=== PATIENT | female | born 1990 | race Caucasian/White ===

== ENCOUNTER 2016-12-02 19:10 | Emergency (ER) | payer BC ==
[2016-12-02 19:14] VITALS: BP 120/75
--- NOTE | 2016-12-02 20:33 | UC ---
Michael Story Alok, scribed for Jean Vences MD on 12/02/16 at 2027 . Abdominal Pain Female HPI - HPI Summary HPI Summary: 26F presents to the [facility] for epigastic pain on and off accompanied by hematemesis with black stools since 2 days ago. Pt states that 5 days ago she has been taking ibuprofen for a migraine frequently. Pt tried taking heart burn medication 2 days ago with no alleviation. Pt states her abd pain worsens with ETOH, though notes ETOH intolerance for the past 2 months. At worst her abd pain was at a 8/10 yesterday. Pt notes N/V and loss of appetite as well as slight BRAY at present. Pt notes lightheadedness and dizziness. Pt denies vaginal discharge. Pt no longer gets MP due to IUD. - History of Current Complaint Chief Complaint: UCAbdominalPain Stated Complaint: STOMACH PAIN Time Seen by Provider: 12/02/16 20:15 Hx Obtained From: Patient Hx Last Menstrual Period: iud Onset/Duration: Lasting Days, Still Present Timing: Constant Severity Initially: Moderate Severity Currently: Moderate Pain Intensity: 8 Pain Scale Used: 0-10 Numeric Location: Epigastric Aggravating Factor(s): Food, Other: - ETOH Alleviating Factor(s): Nothing Associated Signs and Symptoms: Positive: Blood in Stool, Decreased Appetite, Nausea, Vomiting, Other: - hematemesis. Negative: Fever, Vaginal Discharge Allergies/Adverse Reactions: Allergies Allergy/AdvReac Type Severity Reaction Status Date / Time Amoxicillin Allergy Severe Anaphylatic Verified 12/15/15 10:04 Shock Penicillins Allergy Severe Anaphylatic Verified 12/15/15 10:04 Shock PMH/Surg Hx/FS Hx/Imm Hx Neurological History: Migraine - Surgical History Surgical History: Yes Surgery Procedure, Year, and Place: HERNIA REPAIR AT AGE 4 - Family History Known Family History: Negative: Cardiac Disease, Hypertension, Diabetes - Social History Lives: With Family Alcohol Use: None Substance Use Type: None Smoking Status (MU): Never Smoked Tobacco Have You Smoked in the Last Year: No Review of Systems Constitutional: Negative Gastrointestinal: Abdominal Pain, Vomiting, Nausea, Other - black stool, hematemesis Neurological: Headache, Other - lightheadedness, dizziness All Other Systems Reviewed And Are Negative: Yes Physical Exam Triage Information Reviewed: Yes Appearance: Well-Appearing, No Pain Distress Vital Signs: Initial Vital Signs Temp 97.8 F 12/02/16 19:11 Pulse 96 12/02/16 19:11 Resp 16 12/02/16 19:11 BP 120/75 12/02/16 19:11 Pulse Ox 100 12/02/16 19:11 Vital Signs Reviewed: Yes Eyes: Positive: Other: - EOMI, BETTY ENT: Positive: Normal ENT inspection Neck: Positive: Supple, Nontender Respiratory: Positive: Lungs clear, Normal breath sounds Cardiovascular: Positive: RRR Abdomen Description: Positive: Soft, Other: - Epigastric tenderness. Left lower quadrant tenderness to palpation patient was unaware of before exam. Bowel Sounds: Positive: Present Musculoskeletal Exam: Normal Musculoskeletal: Positive: Strength Intact, ROM Intact Neurological Exam: Normal Neurological: Positive: Alert, Other: - Sensory/Motor intact Psychological: Positive: Other: - affect/mood appropriate Skin: Positive: Other - warm, dry, skin color reflects adequate perfusion Abd Pain Female Course/Dx - Course Course Of Treatment: Patient medications reviewed this visit. DISCUSSED REASONS TO GO TO THE EMERGENCY DEPARTMENT. AT THIS TIME WILL TREAT WITH OMEPRAZOLE AND CARAFATE AND OTC MEDS (TUMS/MAALOX). STOP NSAIDS. F/U WITH PMD ; GO TO THE ED IF WORSE. - Differential Dx/Diagnosis Provider Diagnoses: EPIGASTRIC PAIN. Discharge - Discharge Plan Condition: Stable Disposition: HOME Prescriptions: Omeprazole CAP* [Prilosec CAP* 20 MG] 20 mg PO BID #30 cap. Ondansetron ODT TAB* [Zofran 4 MG Odt TAB*] 4 mg PO Q6H PRN #15 tab.odt PRN Reason: Nausea Sucralfate TAB* [Carafate*] 1 gm PO QID #60 tab Patient Education Materials: Epigastric Pain (ED) Referrals: No Primary Care Phys,NOPCP [Primary Care Provider] - Additional Instructions: FOLLOW UP WITH YOUR DOCTOR. CALL TOMORROW FOR FOLLOW UP WITH YOUR DOCTOR. GO TO THE EMERGENCY DEPARTMENT FOR ANY WORSENING OF YOUR CONDITION; PAIN, FEVER , BLOOD IN YOUR VOMIT OR STOOL, YOU FEEL LIGHTHEADED, YOU FEEL ILL OR QUESTIONS OR CONCERNS. The documentation as recorded by the Michael waldrop Alok accurately reflects the service I personally performed and the decisions made by me, Jean Vences MD.
== END 2016-12-02 20:46 | disposition home or self-care (01) ==
LOC: UCEAST 19:10
DX: R10.13 Epigastric pain (principal); G43.909 Migraine, unspecified, not intractable, without status migrainosus; Z97.5 Presence of (intrauterine) contraceptive device; Z88.3 Allergy status to other anti-infective agents; Z88.0 Allergy status to penicillin
CPT/HCPCS: 99212; G0463

== ENCOUNTER 2017-05-10 15:59 | Emergency (ER) | payer BC ==
[2017-05-10 16:31] VITALS: BP 121/67
--- NOTE | 2017-05-10 17:06 | UC ---
Ear Complaint HPI - HPI Summary HPI Summary: 26 year old female presents with complains of left ear pain/bleeding. - History of Current Complaint Chief Complaint: UCRespiratory Stated Complaint: EAR PAIN Time Seen by Provider: 05/10/17 17:05 Hx Obtained From: Patient Hx Last Menstrual Period: unknown- Mirena IUD Onset/Duration: Sudden Onset Severity Initially: Moderate Severity Currently: Moderate Pain Scale Used: 0-10 Numeric - 7 - Allergies/Home Medications Allergies/Adverse Reactions: Allergies Allergy/AdvReac Type Severity Reaction Status Date / Time Amoxicillin Allergy Severe Anaphylatic Verified 05/10/17 16:31 Shock Penicillins Allergy Severe Anaphylatic Verified 05/10/17 16:31 Shock Home Medications: Home Medications Bupropion XL* [Wellbutrin XL *] 1 tab PO DAILY 05/10/17 [History Confirmed 05/10] PMH/Surg Hx/FS Hx/Imm Hx Previously Healthy: Yes - Surgical History Surgical History: Yes Surgery Procedure, Year, and Place: HERNIA REPAIR AT AGE 4 - Family History Known Family History: Positive: None Negative: Cardiac Disease, Hypertension, Diabetes - Social History Alcohol Use: Weekly Alcohol Amount: 1 glass of wine Substance Use Type: None Smoking Status (MU): Never Smoked Tobacco Have You Smoked in the Last Year: No - Immunization History Most Recent Influenza Vaccination: unknown Review of Systems Constitutional: Negative Skin: Negative Eyes: Negative ENT: Ear Ache Respiratory: Negative Cardiovascular: Negative Gastrointestinal: Negative Genitourinary: Negative Motor: Negative Neurovascular: Negative Musculoskeletal: Negative Neurological: Negative Psychological: Negative All Other Systems Reviewed And Are Negative: Yes Physical Exam Triage Information Reviewed: Yes Vital Signs: Initial Vital Signs Temp 37.1 C 05/10/17 16:27 Pulse 70 05/10/17 16:27 Resp 14 05/10/17 16:27 BP 121/67 05/10/17 16:27 Pulse Ox 100 05/10/17 16:27 Vital Signs Reviewed: Yes Eye Exam: Normal ENT: Positive: Other - left external ear canal erythema Dental Exam: Normal Neck exam: Normal Neck: Positive: 1 Respiratory Exam: Normal Cardiovascular Exam: Normal Abdominal Exam: Normal Musculoskeletal Exam: Normal Neurological Exam: Normal Psychological Exam: Normal Skin Exam: Normal Ear Complaint Course/Dx - Differential Dx/Diagnosis Provider Diagnoses: left otitis externa Discharge - Discharge Plan Condition: Stable Disposition: HOME Prescriptions: DOXYcycline CAP(*) [DOXYcycline 100MG CAP(*)] 100 mg PO BID #14 cap Neomyc/Polym/HC 1% OTIC SUSP* [Cortisporin Otic Susp 1%*] 4 drop LEFT EAR QID # 1 btl Patient Education Materials: Otitis Externa (ED) Referrals: Jv Burk MD [Medical Doctor] - No Primary Care Phys,NOPCP [Primary Care Provider] -
== END 2017-05-10 17:30 | disposition home or self-care (01) ==
LOC: UCEAST 15:59
DX: H60.92 Unspecified otitis externa, left ear (principal); Z88.0 Allergy status to penicillin; Z88.1 Allergy status to other antibiotic agents
CPT/HCPCS: 99212; G0463

== ENCOUNTER 2017-09-27 01:24 | Emergency (ER) | payer BC ==
[2017-09-27] MEDS ORDERED: Lidocaine 2% 10 ML* VIAL INJ ONE (02:30)
[2017-09-27] MEDS ORDERED: Lidocaine 2% PF * 5 ML VIAL ONE (02:33)
--- NOTE | 2017-09-27 03:17 | ED ---
Smitha Story Emily, scribed Bj Morris MD on 09/27/17 at 0233 . Laceration/Wound HPI - HPI Summary HPI Summary: This patient is a 27 year old F presenting to [facility] accompanied by friend with a chief complaint of dog bite to her upper and lower lip that occurred [employer]. Pt reports the puppy being up to date on vaccines. The patient rates the pain 8/10 in severity. Symptoms aggravated by nothing. Symptoms alleviated by nothing. - History of Current Complaint Stated Complaint: DOG BITE Time Seen by Provider: 09/27/17 02:19 Hx Obtained From: Patient Hx Last Menstrual Period: unknown- Mirena IUD Onset/Duration: Sudden Onset, Lasting Hours, Still Present Aggravating: Nothing Alleviating: Nothing Onset Severity: Severe Current Severity: Severe Pain Intensity: 8 Pain Scale Used: 0-10 Numeric Associated Signs & Symptoms: Negative - Allergy/Home Medications Allergies/Adverse Reactions: Allergies Allergy/AdvReac Type Severity Reaction Status Date / Time amoxicillin Allergy Anaphylatic Verified 09/27/17 01:40 Shock Penicillins Allergy Anaphylatic Verified 09/27/17 01:40 Shock PMH/Surg Hx/FS Hx/Imm Hx Previously Healthy: Yes Endocrine/Hematology History: Denies: Hx Diabetes, Hx Thyroid Disease Cardiovascular History: Denies: Hx Hypertension Respiratory History: Denies: Hx Asthma, Hx Chronic Obstructive Pulmonary Disease (COPD) GI History: Denies: Hx Ulcer - Surgical History Surgery Procedure, Year, and Place: HERNIA REPAIR AT AGE 4 Infectious Disease History: No Infectious Disease History: Denies: Hx Clostridium Difficile, Hx Hepatitis, Hx Human Immunodeficiency Virus (HIV), Hx of Known/Suspected MRSA, Hx Shingles, Hx Tuberculosis, Hx Known/ Suspected VRE, Hx Known/Suspected VRSA, History Other Infectious Disease, Traveled Outside the [place] in Last 30 Days - Family History Known Family History: Positive: None Negative: Cardiac Disease, Hypertension, Diabetes - Social History Occupation: Employed Full-time Lives: Alone Alcohol Use: Weekly Alcohol Amount: 1 glass of wine Substance Use Type: Reports: None Smoking Status (MU): Never Smoked Tobacco Have You Smoked in the Last Year: No Review of Systems Negative: Fever Positive: Other - Positive laceration to upper and lower lips All Other Systems Reviewed And Are Negative: Yes Physical Exam - Summary Physical Exam Summary: Appearance: Well-appearing, Well-nourished, lying in bed comfortably Skin: Warm, dry, no obvious rash Eyes: sclera anicteric, no conjunctiva pallor ENT: mucous membranes moist, pharynx appears normal Head and Face: Lower lip, very superficial puncture wound. Upper lip has a flap laceration about 1 cm in length with minimal maceration at the edges. No through and through laceration of the lip. The wound goes up to but not over the ravi border. Neck: Supple, nontender Respiratory: Clear to auscultation, no signs of respiratory distress Cardiovascular: Normal S1, S2. No murmurs. Normal distal pulses in tibial and radial bilaterally. Abdomen: Soft, nontender, normal active bowel sounds present Musculoskeletal: Normal, Strength/ROM Intact Neurological: A&Ox3, awake and alert, mentation is normal, speech is fluent and appropriate Psychiatric: affect is normal, does not appear anxious or depressed Triage Information Reviewed: Yes Vital Signs On Initial Exam: Initial Vitals Temp Pulse Resp BP Pulse Ox 98.2 F 92 18 126/68 100 09/27/17 01:36 09/27/17 01:36 09/27/17 01:36 09/27/17 01:36 09/27/17 01:36 Vital Signs Reviewed: Yes Procedures - Laceration/Wound Repair 1 Location: Other - upper lip Description: Irregular Anesthesia: 2.0% - bilateral infraorbital blocks Length, Depth and Shape: 1.5 cm curvilinear flap laceration Betadine Prep?: Yes Laceration/Wound Explored: clean Closure: Single Layer Suture Type: Other - fast absorbing gut Number of Sutures: 5 Layer Closure?: No Sterile Dressing Applied?: No Diagnostics - Vital Signs Vital Signs Temp Pulse Resp BP Pulse Ox 09/27/17 01:36 98.2 F 92 18 126/68 100 - Laboratory Lab Statement: Any lab studies that have been ordered have been reviewed, and results considered in the medical decision making process. Laceration Repair Course/Dx - Differential Dx Differental Diagnoses: Bite Injury - Clinical Impression Provider Diagnoses: Laceration of lip Discharge - Sign-Out/Discharge Documenting (check all that apply): Discharge/Admit/Transfer - Discharge Plan Condition: Good Disposition: HOME Patient Education Materials: Care For Your Stitches (ED) Referrals: Loli Lazar MD [Primary Care Provider] - Additional Instructions: Clean the area twice daily gently. The sutures should dissolve and fall out within a week, but if they have not come back and we will remove them. Watch for signs of infection and come back if it is starting to look infected. - Billing Disposition and Condition Condition: GOOD Disposition: HOME The documentation as recorded by the Smitha waldrop Emily accurately reflects the service I personally performed and the decisions made by me, Bj Sheridan MD.
[2017-09-27 03:31] VITALS: BP 123/73
== END 2017-09-27 03:30 | disposition home or self-care (01) ==
LOC: ED 01:24
DX: S01.551A Open bite of lip, initial encounter (principal); W54.0XXA Bitten by dog, initial encounter; Y92.9 Unspecified place or not applicable
CPT/HCPCS: 12011; 99281